=== PATIENT | female | born 1940 | race Caucasian/White ===

== ENCOUNTER 2016-12-04 14:43 | Outpatient (CLI) | payer OTHER ==
--- NOTE | 2016-12-04 15:47 | DIAGNOSTIC IMAGING REPORT ---
PROCEDURE: US COMPLETE PELVIC W/TRANSVAG INDICATION: PELVIC PAIN TECHNIQUE: Transabdominal and endovaginal san scale and color Doppler sonographic images of the female pelvis were obtained. COMPARISON: None. FINDINGS: TRANSABDOMINAL SCANS: The uterus is somewhat atrophic measuring 5.7 x 4.4 x 3.1 cm. Kidneys are normal. TRANSVAGINAL SCANS: The uterus is anteverted. Myometrium is normal. The endometrium is abnormally thick at 7-8 mm. There is a a trace of vascularity. Right ovary is not visualized. The left ovary is not visualized. IMPRESSION: 1. Abnormally thick endometrium for a postmenopausal female with a trace of vascularity.
== END 2016-12-04 23:00 ==
LOC: US SRH 14:43
DX: R10.33 Periumbilical pain (principal); R93.8 Abnormal findings on diagnostic imaging of other specified body structures; Z78.0 Asymptomatic menopausal state